=== PATIENT | male | born 1975 | race Caucasian/White ===

== ENCOUNTER 2020-05-21 15:08 | Emergency (ER) | payer OTHER ==
[~2020-05-21] VITALS: Ht 167.6 cm; Wt 63.0 kg
[2020-05-21 15:15] VITALS: BP 146/96
[2020-05-21] MEDS ORDERED: cefTRIAXone IM 500 MG VIAL. IM ONE (15:30)
[2020-05-21] MEDS ORDERED: metroNIDAZOLE 500 MG TABLET PO ONE (15:30)
[2020-05-21] MEDS ORDERED: DOXYCYCLINE HYCLATE 100 MG TABLET PO ONE (15:30)
--- NOTE | 2020-05-21 15:34 | PHYS DOC ---
Past History Past Medical History: No Pertinent History Past Surgical History: No Surgical History Alcohol Use: None Adult General Chief Complaint Chief Complaint: PAIN ON URINATION HPI HPI Patient is a 45 year old male who presents with dysuria, penile discharge, symptoms began 1 week ago. Denies any abdominal pain nausea, vomiting or flank pain or hematuria Review of Systems Review of Systems Constitutional: Denies fever or chills [] GI: Denies abdominal pain, nausea, vomiting, bloody stools or diarrhea [] : Reports dysuria, penile discharge Musculoskeletal: Denies back pain or joint pain [] Integument: Denies rash or skin lesions [] Neurologic: Denies headache, focal weakness or sensory changes [] All other systems were reviewed and found to be within normal limits, except as documented in this note. Current Medications Current Medications Current Medications Medications (Trade) Dose Ordered Sig/Stefany Start Time Stop Time Status Last Admin Dose Admin Ceftriaxone Sodium (Rocephin Im) 500 mg 1X ONCE 05/21/20 15:30 05/21/20 15:31 UNV Doxycycline Hyclate (Vibra-Tab) 100 mg 1X ONCE 05/21/20 15:30 05/21/20 15:31 UNV Metronidazole (Flagyl) 2,000 mg 1X ONCE 05/21/20 15:30 05/21/20 15:31 UNV Allergies Allergies Allergies Coded Allergies Type Severity Reaction Last Updated Verified No Known Drug Allergies 05/21/20 No Physical Exam Physical Exam Constitutional: Well developed, well nourished, no acute distress, non-toxic appearance. [] Skin: Warm, dry, no erythema, no rash. [] Back: No tenderness, no CVA tenderness. [] Extremities: No tenderness, no cyanosis, no clubbing, ROM intact, no edema. [] Neurologic: Alert and oriented X 3, normal motor function, normal sensory function, no focal deficits noted. [] Psychologic: Affect normal, judgement normal, mood normal. [] Current Patient Data Vital Signs Vital Signs Date Time Temp Pulse Resp B/P (MAP) Pulse Ox O2 Delivery O2 Flow Rate FiO2 05/21/20 15:15 98.1 81 20 146/96 (113) 99 Room Air EKG EKG [] Radiology/Procedures Radiology/Procedures [] Heart Score Risk Factors: Risk Factors: DM, Current or recent (<one month) smoker, HTN, HLP, family history of CAD, obesity. Risk Scores: Risk Factors: DM, Current or recent (<one month) smoker, HTN, HLP, family history of CAD, obesity. Course & Med Decision Making Course & Med Decision Making Pertinent Labs and Imaging studies reviewed. (See chart for details) This is a 45-year-old male patient presented to the ED today with dysuria and penile discharge, symptoms for 1 week. Patient was given the STD standard new treatment by the CDC including Flagyl, Rocephin and doxycycline. His urine was also sent for UTI check and STDs. +UTI D/c on doxycycline and cephalaxin Education was also provided regarding STD Dragon Disclaimer Dragon Disclaimer This electronic medical record was generated, in whole or in part, using a voice recognition dictation system. Departure Departure: Impression: Primary Impression: Concern about STD in male without diagnosis Additional Impression: UTI (urinary tract infection) Disposition: 01 DC HOME SELF CARE/HOMELESS Condition: STABLE Referrals: NAHID RODRIGUES (PCP) follow up with your doctor in 1 week Patient Instructions: Sexually Transmitted Disease, Urinary Tract Infection Additional Instructions: You were treated for UTI and STDs. Do not have intercourse for 2 weeks. Ensure you let your partners know so that they can get treated Scripts Cephalexin (CEPHALEXIN) 500 Mg Tablet 1 TAB PO BID, #14 TAB Prov: MANDI KOENIG APRN 05/21/20 Doxycycline Hyclate (DOXYCYCLINE HYCLATE) 100 Mg Tablet 1 TAB PO BID, #14 TAB Prov: MANDI KOENIG APRN 05/21/20 Problem Qualifiers Additional Impression: UTI (urinary tract infection) Urinary tract infection type: site unspecified Hematuria presence: with hematuria Qualified Codes: N39.0 - Urinary tract infection, site not specified; R31.9 - Hematuria, unspecified MANDI KOENIG APRN May 21, 2020 15:34
[2020-05-21] MEDS ORDERED: DOXY100T PO (15:37)
[2020-05-21 15:52] LABS: BILIRUBIN,URINE NEG (NEG); CLARITY,URINE HAZY; COLOR,URINE YELLOW; GLUCOSE,URINE NEG (NEG)
[2020-05-21 15:53] LABS: BACTERIA,URINE FEW /HPF (0-FEW); NITRITE,URINE NEG (NEG); UROBILINOGEN,URINE 0.2 mg/dL (0.2 mg/dL); WBC,URINE TNTC /HPF (0-4)
[2020-05-21 15:54] LABS: SQUAMOUS EPITHELIAL CELL,UR OCC /LPF
[2020-05-21] MEDS ORDERED: CEPH500T PO (16:54)
== END 2020-05-21 17:04 | disposition home or self-care (01) ==
LOC: ER 15:08
DX: N39.0 Urinary tract infection, site not specified (principal); Z20.2 Contact with and (suspected) exposure to infections with a predominantly sexual mode of transmission
CPT/HCPCS: 36415; 81001; 87086; 87491; 87591; 96372; 99283; J0696